=== PATIENT | female | born 1955 | race Caucasian/White ===

== ENCOUNTER 2019-03-16 01:12 | Day surgery (SDC) | payer MEDICARE, SELFPAY ==
[2019-03-06 09:05] VITALS: BMI 36.1
[2019-03-16] VITALS (8 sets, daily range): BP systolic 99–134; BP diastolic 57–69; PULSE 61–80; RESP 16–21; TEMP 36.2–36.9; O2SAT 92–97
--- NOTE | 2019-03-16 07:39 | WPDHPUPDATE1 ---
History and Physical Update Update Date/Time: 03/16/19 07:39 History and Physical has been reviewed, including an updated exam of the patient. There are NO changes in the patient's condition. Risks, benefits, and alternatives have been discussed and questions answered. Patient agrees to proceed with procedure.
[2019-03-16] MEDS: LACTATED RINGERS 1,000 ML 30 ML IV CONT ×2 (08:15→12:16)
[2019-03-16] MEDS: CELECOXIB 200 MG CAPSULE PO (08:15)
[2019-03-16 08:28] LABS: Glucose Point of Care 190 (65-105)
--- NOTE | 2019-03-16 08:47 | WPDANESEPPF ---
Anes - Initial Pre Proc Eval Procedure: Operation Date: 03/16/19 10:00 Proposed Procedures p Right Rotator Cuff Repair with Distal Clavicle Excision - Ted Cuellar MD Date/Time: 03/16/19 08:47 Surgeon: Ted Cuellar MD Pre Op Diagnosis: Right Rotator Cuff Tear Patient Data Age: 63 Gender: F Height: 1.6 m Weight: 92.53 kg Allergies Allergy/AdvReac Type Severity Reaction Status Date / Time No Known Allergies Allergy Unknown Verified 03/06/19 09:06 Home Medications Medication Instructions Recorded Confirmed Type atorvastatin 10 mg tablet 10 mg PO DAILY #90 tablet 01/17/19 03/06/19 Rx hydrochlorothiazide 25 mg tablet 25 mg PO DAILY #90 tablet 01/17/19 03/06/19 Rx sertraline 100 mg tablet 100 mg PO DAILY #90 tablet 01/17/19 03/06/19 Rx alprazolam 1 mg tablet 1 mg PO BID PRN #60 tablet 01/18/19 03/06/19 Rx aspirin 81 mg tablet,delayed 81 mg PO DAILY 01/19/19 03/06/19 History release blood sugar diagnostic #10 each 01/19/19 History insulin glargine 100 unit/mL (3 20 unit SUBCUT DAILY 01/19/19 03/06/19 History mL) subcutaneous pen losartan 25 mg tablet 25 mg PO DAILY 01/19/19 03/06/19 History metformin 1,000 mg tablet 1,000 mg PO BID 01/19/19 03/06/19 History pen needle, diabetic 32 gauge x #10 each 01/19/19 History ranitidine HCl 150 mg tablet 150 mg PO DAILY #90 tablet 02/13/19 03/06/19 Rx chlorhexidine gluconate 4 % 1 applic TOPICAL ONCE #3785 ml 02/22/19 03/06/19 Rx topical liquid levothyroxine 125 mcg tablet 125 mcg PO DAILY #90 tablet 02/22/19 03/06/19 Rx ibuprofen 800 mg PO TID PRN 03/06/19 03/06/19 History triamcinolone acetonide 1 applic TOPICAL BID PRN 03/06/19 03/06/19 History Laboratory Tests 03/16/19 08:25 POC Capillary Glucose 190 mg/dl H mg/dl (65-105) Patient hx anesthesia problems: none Family hx anesthesia problems: none PMFSH Past Medical History Medical History (Updated 03/16/19 @ 08:49 by Matt Bowens MD) Anxiety Back pain Depression Diabetes mellitus History of DVT (deep vein thrombosis) HLD (hyperlipidemia) HTN (hypertension) Hypothyroidism (acquired) Obesity Seizures 2018- ISOLATED INCIDENT Surgical History Surgical History History of bilateral knee replacement Social History Social History Smoking status: Never smoker Alcohol intake: never Anes - Eval Final PreProcedure Day of Procedure 03/16/19 08:47 Patient weight: obese Heart: regular rate and rhythm Lungs: clear to auscultation and normal air movement Airway: Mallampati scale class II Neurological: alert and oriented Last oral intake: >/= 8 hours ASA classification: III Emergent: no Anesthetic plan: proceed Anesthesia type and monitoring: general ETT Informed Consent: The patient's anesthetic plan and its attendant risks and benefits were discussed with the patient/family/POA. Questions were solicited and answers provided to the satisfaction of the patient/family/POA.
--- NOTE | 2019-03-16 09:19 | WPDANESPNB ---
Anes - Peripheral Nerve Block Date/Time: 03/16/19 09:19 I have discussed with the patient/family/POA the placement of a peripheral nerve block for post-operative pain management, including associated risks, benefits, complications, and side effects. Alternative methods of post-operative analgesia were detailed. Questions were solicited and answers provided to the satisfaction of the patient/family/POA. Time-Out: A pre-procedural Time-Out was completed immediately before starting the procedure and confirmed: Patient Identification, Site, Procedure, Patient Position and the Availability of Requisite Equipment. Clinical Indications: Acute post-operative pain management requested by the operative surgeon. Nerve Block Insertion Note Anes-nerve block: supraclavicular right Patient position: supine Skin prep: chlorhexidine Needle: 22 gauge, stimulating, insulated echogenic needle. Needle length: 80 mm Technique: ultrasound (in plane) Injectate: bupivacaine 0.5% with epi 5 mcg/ml (20cc) Observations: tolerated well Complications: none Procedure start time:: 910 Procedure end time::
--- NOTE | 2019-03-16 09:24 | WPDANESPNB ---
Anes - Peripheral Nerve Block Date/Time: 03/16/19 09:24 I have discussed with the patient/family/POA the placement of a peripheral nerve block for post-operative pain management, including associated risks, benefits, complications, and side effects. Alternative methods of post-operative analgesia were detailed. Questions were solicited and answers provided to the satisfaction of the patient/family/POA. Time-Out: A pre-procedural Time-Out was completed immediately before starting the procedure and confirmed: Patient Identification, Site, Procedure, Patient Position and the Availability of Requisite Equipment. Clinical Indications: Acute post-operative pain management requested by the operative surgeon. Nerve Block Insertion Note Anes-nerve block: supraclavicular right Patient position: supine Skin prep: chlorhexidine Needle: 22 gauge, stimulating, insulated echogenic needle. Needle length: 80 mm Technique: ultrasound (in plane) Injectate: bupivacaine 0.5% with epi 5 mcg/ml (20cc) Observations: tolerated well Complications: none Procedure start time:: 910 Procedure end time::
[2019-03-16] MEDS: ceFAZolin 2 GM/D5W 50 ML 2 GM/50 ML BAG IVPB (10:27)
--- NOTE | 2019-03-16 12:00 | PM.OP ---
Procedure Note - Brief Procedure Note - Brief Date of procedure: 03/16/19 Pre-op diagnosis: Right Rotator Cuff Tear Post-op diagnosis: same Procedure performed: R ROT CUFF REPAIR Anesthesia: GETA Surgeon: Ted Cuellar MD Estimated blood loss (mL): 20 Complications: No immediate complications Condition: stable Disposition: PACU
[2019-03-16 12:36] LABS: Glucose Point of Care 243 (65-105)
[2019-03-16] MEDS: INSULIN HUMAN REGULAR (*BKC) 100 UNITS/ML SUB-Q (12:50)
--- NOTE | 2019-03-19 06:10 | OP_ITS ---
DATE OF PROCEDURE: 03/16/2019 PREOPERATIVE DIAGNOSES: Right shoulder full-thickness rotator cuff tear and acromioclavicular joint degenerative joint disease. POSTOPERATIVE DIAGNOSES: Right shoulder full-thickness rotator cuff tear and acromioclavicular joint degenerative joint disease. PROCEDURE: Repair of right rotator cuff and distal clavicle excision. ANESTHESIA: General. COMPLICATIONS: None. INDICATIONS: This is a 63-year-old female with a full-thickness right rotator cuff tear and AC joint DJD. She had failed nonoperative treatment. She was indicated for rotator cuff repair. DESCRIPTION OF PROCEDURE: The patient was taken to the operating room in stable condition and placed in supine position. General anesthesia was induced on the right and then she was placed in the beach chair position and the right upper extremity was prepped and draped sterilely from the fingers to the axillary and cervical region. Incision was made in between the AC joint and the anterolateral acromion down to the subcutaneous tissues and the AC joint was identified and was exposed. There was severe arthrosis of the AC joint. A distal clavicle excision was performed removing approximately 0.5 cm of bone from the distal clavicle and then also from the AC joint was also performed. Inferior osteophytes were removed with a rongeur as well. The AC joint was irrigated thoroughly and the capsule was approximated with #0 Vicryl. Next, a mini open incision was made in the deltoid muscle exposing the subacromial space. A bursectomy was performed, then the full-thickness tear was identified. It was approximately 1 cm from anterior to posterior. There was no retraction. One Arthrex corkscrew suture anchor was placed and then the tear was repaired with modified Darrick-Davide type sutures. The repair was excellent. There was no impingement of the repair on the acromion. The wound was irrigated thoroughly. The deltoid muscle was repaired with #2 FiberWire and 0 Vicryl suture. Subcutaneous tissue approximated with 2-0 Vicryl and then subcuticular stitch using 3-0 Quill was used and then Dermabond was placed. Sterile dressing was applied. The patient was placed back in the supine position. She was extubated and sent to Recovery. Eligio I MT: Araceli
== END 2019-03-16 14:22 | disposition home or self-care (01) ==
PROVIDERS: PCP Emergency Medicine; Visit Provider Orthopaedic Surgery
PROC: (CPT 23420; principal; 2019-03-16 10:00)
DX: M75.101 Unspecified rotator cuff tear or rupture of right shoulder, not specified as traumatic (principal); M19.011 Primary osteoarthritis, right shoulder; G89.18 Other acute postprocedural pain; I10 Essential (primary) hypertension; E78.5 Hyperlipidemia, unspecified; E11.9 Type 2 diabetes mellitus without complications; E03.9 Hypothyroidism, unspecified; F41.8 Other specified anxiety disorders; Z86.718 Personal history of other venous thrombosis and embolism; E66.9 Obesity, unspecified; Z68.36 Body mass index [BMI] 36.0-36.9, adult; Z79.82 Long term (current) use of aspirin; Z79.4 Long term (current) use of insulin; Z79.84 Long term (current) use of oral hypoglycemic drugs
CPT/HCPCS: 23412; 23120; 64415; A9270; C1713; J0171; J0330; J0690; J1100; J1815; J2250; J2370; J2405; J2704; J3010; J7120